=== PATIENT | female | born 1960 | race Caucasian/White ===

== ENCOUNTER 2017-04-20 20:06 | Emergency (ER) | payer OTHER ==
--- NOTE | 2017-04-20 22:09 | ER Document Report ---
ED Medical Screen (RME) - General Chief Complaint: Blood Pressure Problem Stated Complaint: BLOOD PRESSURE PROBLEMS Time Seen by Provider: 04/20/17 22:03 Notes: Patient is a 56-year-old female presents emergency department complaining of hypotension. She denies any changes in her medication but they do not have an updated med list. Was able to look up her medications on our EMR and her son denies any changes in her medications. She does take 40 mg of Lasix, dillon.b She denies acetembutolol, amitiza and lisinopril. admits to dry mouth and urinary frequency, recently seen in 02/2017 for similar symptoms requiring admission for ARF TRAVEL OUTSIDE OF THE [place] IN LAST 30 DAYS: No - Related Data Allergies/Adverse Reactions: aripiprazole [From Abilify] Allergy (Severe, Verified 05/25/15 12:25) Passed out tramadol HCl [From Ultram] Allergy (Intermediate, Verified 05/25/15 12:25) Penicillins Adverse Reaction (Mild, Verified 05/25/15 12:25) Sulfa (Sulfonamide Antibiotics) Adverse Reaction (Mild, Verified 05/25/15 12:25) Nausea sulindac [From Clinoril] Adverse Reaction (Mild, Verified 05/25/15 12:25) Nausea eszopiclone [From Lunesta] Adverse Reaction (Verified 05/25/15 12:25) Past Medical History - Past Medical History Cardiac Medical History: Reports: Hx Coronary Artery Disease, Hx Hypercholesterolemia, Hx Hypertension Denies: Hx Heart Attack, Hx Pulmonary Embolism Pulmonary Medical History: Reports: Hx Asthma, Hx Bronchitis, Hx COPD, Hx Sleep Apnea Denies: Hx Pneumonia, Hx Respiratory Failure, Hx Tuberculosis Neurological Medical History: Denies: Hx Cerebrovascular Accident, Hx Seizures Endocrine Medical History: Reports: Hx Diabetes Mellitus Type 2 - BORDERLINE. Denies: Hx Graves' Disease, Hx Hyperthyroidism, Hx Hypothyroidism Renal/ Medical History: Denies: Hx Ovarian Cysts, Hx Peritoneal Dialysis, Hx Pelvic Inflammatory Disease Malignancy Medical History: Denies: Hx Breast Cancer, Hx Cervical Cancer, Hx Lung Cancer, Hx Ovarian Cancer GI Medical History: Reports: Hx Gastroesophageal Reflux Disease. Denies: Hx Crohn's Disease, Hx Hiatal Hernia, Hx Irritable Bowel, Hx Liver Failure, Hx Ulcer Musculoskeltal Medical History: Reports Hx Arthritis, Reports Hx Fibromyalgia, Denies Hx Multiple Sclerosis, Denies Hx Muscular Dystrophy, Reports Hx Musculoskeletal Deformity, Reports Hx Musculoskeletal Trauma Psychiatric Medical History: Reports: Hx Anxiety, Hx Depression Denies: Hx Bipolar Disorder, Hx Dementia, Hx Post Traumatic Stress Disorder, Hx Schizophrenia Traumatic Medical History: Denies: Hx Fractures Past Surgical History: Reports: Hx Cholecystectomy, Hx Herniorrhaphy - umbilical hernia, Hx Hysterectomy, Hx Orthopedic Surgery - right knee surgery, Hx Tubal Ligation. Denies: Hx Appendectomy, Hx Bowel Surgery, Hx Section, Hx Colostomy, Hx Coronary Artery Bypass Graft, Hx Gastric Bypass Surgery, Hx Mastectomy, Hx Pacemaker, Hx Tonsillectomy - Immunizations Immunizations up to date: Yes Hx Diphtheria, Pertussis, Tetanus Vaccination: Yes - 2010 Physical Exam - Vital signs Vitals: Temp Pulse Resp BP Pulse Ox 97.9 F 100 22 H 95/66 L 91 L 04/20/17 20:31 04/20/17 20:31 04/20/17 20:31 04/20/17 20:31 04/20/17 20:31 Course - Vital Signs Vital signs: Temp Pulse Resp BP Pulse Ox 97.9 F 100 22 H 95/66 L 91 L 04/20/17 20:31 04/20/17 20:31 04/20/17 20:31 04/20/17 20:31 04/20/17 20:31
--- NOTE | 2017-04-20 22:43 | ER Document Report ---
ED Blood Pressure Problem - General Chief Complaint: Blood Pressure Problem Stated Complaint: BLOOD PRESSURE PROBLEMS Time Seen by Provider: 04/20/17 22:03 Notes: The patient is a 56 yo female, PMHx GERD, fibromyalgia, chronic pain, hypertension, COPD, morbid obesity and obstructive sleep apnea, presents with generalized weakness and hypotension at home. She was seen for similar symptoms about 2 months ago and admitted for acute renal failure and hypotension that resolved after IV fluids. She is continuing to take her lisinopril and Lasix 40 mg twice a day. Patient is also having mild shortness of breath, but she says this is chronic for her due to her COPD. She denies chest pain, fevers, increased leg swelling, abdominal pain, focal weakness, numbness, tingling, blurry vision, headache, urinary symptoms or rash. TRAVEL OUTSIDE OF THE [place] IN LAST 30 DAYS: No - Related Data Allergies/Adverse Reactions: aripiprazole [From Abilify] Allergy (Severe, Verified 05/25/15 12:25) Passed out tramadol HCl [From Ultram] Allergy (Intermediate, Verified 05/25/15 12:25) Penicillins Adverse Reaction (Mild, Verified 05/25/15 12:25) Sulfa (Sulfonamide Antibiotics) Adverse Reaction (Mild, Verified 05/25/15 12:25) Nausea sulindac [From Clinoril] Adverse Reaction (Mild, Verified 05/25/15 12:25) Nausea eszopiclone [From Lunesta] Adverse Reaction (Verified 05/25/15 12:25) Past Medical History - General Information source: Patient - Social History Smoking Status: Never Smoker Family History: Hypertension Patient has suicidal ideation: No Patient has homicidal ideation: No - Past Medical History Cardiac Medical History: Reports: Hx Coronary Artery Disease, Hx Hypercholesterolemia, Hx Hypertension Denies: Hx Heart Attack, Hx Pulmonary Embolism Pulmonary Medical History: Reports: Hx Asthma, Hx Bronchitis, Hx COPD, Hx Sleep Apnea Denies: Hx Pneumonia, Hx Respiratory Failure, Hx Tuberculosis Neurological Medical History: Denies: Hx Cerebrovascular Accident, Hx Seizures Endocrine Medical History: Reports: Hx Diabetes Mellitus Type 2 - BORDERLINE. Denies: Hx Graves' Disease, Hx Hyperthyroidism, Hx Hypothyroidism Renal/ Medical History: Denies: Hx Ovarian Cysts, Hx Peritoneal Dialysis, Hx Pelvic Inflammatory Disease Malignancy Medical History: Denies: Hx Breast Cancer, Hx Cervical Cancer, Hx Lung Cancer, Hx Ovarian Cancer GI Medical History: Reports: Hx Gastroesophageal Reflux Disease. Denies: Hx Crohn's Disease, Hx Hiatal Hernia, Hx Irritable Bowel, Hx Liver Failure, Hx Ulcer Musculoskeltal Medical History: Reports Hx Arthritis, Reports Hx Fibromyalgia, Denies Hx Multiple Sclerosis, Denies Hx Muscular Dystrophy, Reports Hx Musculoskeletal Deformity, Reports Hx Musculoskeletal Trauma Psychiatric Medical History: Reports: Hx Anxiety, Hx Depression Denies: Hx Bipolar Disorder, Hx Dementia, Hx Post Traumatic Stress Disorder, Hx Schizophrenia Traumatic Medical History: Denies: Hx Fractures Past Surgical History: Reports: Hx Cholecystectomy, Hx Herniorrhaphy - umbilical hernia, Hx Hysterectomy, Hx Orthopedic Surgery - right knee surgery, Hx Tubal Ligation. Denies: Hx Appendectomy, Hx Bowel Surgery, Hx Section, Hx Colostomy, Hx Coronary Artery Bypass Graft, Hx Gastric Bypass Surgery, Hx Mastectomy, Hx Pacemaker, Hx Tonsillectomy - Immunizations Immunizations up to date: Yes Hx Diphtheria, Pertussis, Tetanus Vaccination: Yes - 2010 Hx Pneumococcal Vaccination: 03/03/16 Review of Systems - Review of Systems Notes: REVIEW OF SYSTEMS: CONSTITUTIONAL: -fevers, -chills EENT: -eye pain, -difficulty swallowing, -nasal congestion CARDIOVASCULAR:-chest pain, -syncope. RESPIRATORY: -cough, +SOB GASTROINTESTINAL: -abdominal pain, -nausea, -vomiting, -diarrhea GENITOURINARY: -dysuria, -hematuria MUSCULOSKELETAL: -back pain, -neck pain SKIN: -rash or skin lesions. HEMATOLOGIC: -easy bruising or bleeding. LYMPHATIC: -swollen, enlarged glands. NEUROLOGICAL: -altered mental status or loss of consciousness, -headache, - neurologic symptoms PSYCHIATRIC: -anxiety, -depression. ALL OTHER SYSTEMS REVIEWED AND NEGATIVE. Physical Exam - Vital signs Vitals: Temp Pulse Resp BP Pulse Ox 97.9 F 100 22 H 95/66 L 91 L 04/20/17 20:31 04/20/17 20:31 04/20/17 20:31 04/20/17 20:31 04/20/17 20:31 - Notes Notes: PHYSICAL EXAMINATION: GENERAL: Well-appearing, well-nourished and in no acute distress. HEAD: Atraumatic, normocephalic. EYES: Pupils equal round and reactive to light, extraocular movements intact, sclera anicteric, conjunctiva are normal. ENT: nares patent, oropharynx clear without exudates. Moist mucous membranes. NECK: Normal range of motion, supple without lymphadenopathy LUNGS: Breath sounds clear to auscultation bilaterally and equal. No wheezes rales or rhonchi. HEART: Regular rate and rhythm without murmurs ABDOMEN: Soft, nontender, normoactive bowel sounds. No guarding, no rebound. No masses appreciated. EXTREMITIES: Normal range of motion, no pitting or edema. No cyanosis. NEUROLOGICAL: Cranial nerves grossly intact. Normal speech, normal gait. Normal sensory and motor exams. PSYCH: Normal mood, normal affect. SKIN: Warm, Dry, normal turgor, no rashes or lesions noted. Course - Re-evaluation Re-evalutation: Pt appears well. Her blood pressure improved to 119/87 after IV fluids and she is not orthostatic. Blood work and urine are unremarkable. D-dimer sent because of tachycardia, hypotension and slight hypoxia and this was elevated, but CTA did not show any evidence of PE. No signs of infection to suggest sepsis. Told her to hold her Lisinopril until she can see her PMD this week. Will D/C pt home with strict return precautions. Her and understand. - Vital Signs Vital signs: Temp Pulse Resp BP Pulse Ox 97.9 F 100 22 H 106/67 96 04/20/17 20:31 04/20/17 20:31 04/20/17 20:31 04/21/17 01:31 04/21/17 01:31 - Laboratory Result Diagrams: 04/20/17 22:26 04/20/17 22:26 Laboratory results interpreted by me: 04/20/17 04/20/17 04/20/17 22:26 22:26 22:26 D-Dimer 0.62 H Chloride 96 L Carbon Dioxide 35 H Est GFR (Non-Af Amer) 52 L Ur Leukocyte Esterase SMALL H - Diagnostic Test Radiology reviewed: Image reviewed, Reports reviewed Radiology results interpreted by me: CXR: NAD CTA Chest: No PE. - EKG Interpretation by Me EKG shows normal: Sinus rhythm, [place], Intervals, QRS Complexes, ST-T Waves Rate: Normal Discharge - Discharge Clinical Impression: Hypotension Qualifiers: Hypotension type: unspecified hypotension type Qualified Code(s): I95.9 - Hypotension, unspecified Condition: Stable Disposition: HOME, SELF-CARE Additional Instructions: Do not take your lisinopril because this may be making your blood pressure too low. Speak to your primary care physician when you see her this week to have your blood pressure rechecked. Return immediately to the ER if you notice any worsening symptoms or any other concerns. Referrals: DOMENICA ARTEAGA MD [Primary Care Provider] - Follow up as needed
[2017-04-20] MEDS: NORMAL SALINE 1000 ML 1,000 ML IV PRN ×2 (22:47→22:48)
[2017-04-20 22:52] LABS: ABSOLUTE BASOPHILS # (AUTO) 0.1 10^3/uL (0.0-0.2); ABSOLUTE EOSINOPHILS # (AUTO) 0.3 10^3/uL (0.0-0.6); ABSOLUTE LYMPHOCYTES (AUTO) 2.7 10^3/uL (0.5-4.7); ABSOLUTE MONOCYTES (AUTO) 0.7 10^3/uL (0.1-1.4); ABSOLUTE NEUT (AUTO) 2.8 10^3/uL (1.7-8.2); BASOPHILS % (AUTO) 0.9 % (0-2); EOSINOPHILS % (AUTO) 5.2 % (0-6); HEMATOCRIT 39.8 % (36.0-47.0); HEMOGLOBIN 13.9 g/dL (12.0-15.5); HGB HCT DIFFERENCE 1.9; LYMPHOCYTES % (AUTO) 40.1 % (13-45); MEAN CORPUSCULAR HEMOGLOBIN 30.9 pg (27.0-33.4); MEAN CORPUSCULAR HGB CONC 34.8 g/dL (32.0-36.0); MEAN CORPUSCULAR VOLUME 89 fl (80-97); MONOCYTES % (AUTO) 11.1 % (3-13); RED BLOOD COUNT 4.48 10^6/uL (3.72-5.28); RED CELL DISTRIBUTION WIDTH 13.3 % (11.5-14.0); SEGMENTED NEUTROPHILS % (AUTO) 42.7 % (42-78); WHITE BLOOD COUNT 6.6 10^3/uL (4.0-10.5)
[2017-04-20 22:57] LABS: APPEARANCE,URINE CLEAR; BILIRUBIN,URINE NEGATIVE (NEGATIVE); GLUCOSE, URINE NEGATIVE (NEGATIVE); KETONES,URINE NEGATIVE (NEGATIVE); LEUKOCYTE ESTERASE,URINE SMALL (NEGATIVE); NITRITE,URINE NEGATIVE (NEGATIVE); PROTEIN,URINE NEGATIVE (NEGATIVE); URINE SPECIFIC GRAVITY 1.015; UROBILINOGEN,URINE NEGATIVE mg/dL (<2.0)
[2017-04-20 23:07] LABS: ALANINE AMINOTRANSFERASE 36 U/L (9-52); ALBUMIN 4.1 g/dL (3.5-5.0); ALKALINE PHOSPHATASE 94 U/L (38-126); ANION GAP 11 (5-19); ASPARTATE AMINO TRANSFERASE 25 U/L (14-36); BILIRUBIN,DIRECT 0.4 mg/dL (0.0-0.4); BILIRUBIN,TOTAL 0.4 mg/dL (0.2-1.3); BLOOD UREA NITROGEN 19 mg/dL (7-20); CALCIUM 9.9 mg/dL (8.4-10.2); CARBON DIOXIDE 35 mmol/L (22-30); CHLORIDE 96 mmol/L (98-107); CREATININE RESULT 1.08 mg/dL (0.52-1.25); GLUCOSE 100 mg/dL (75-110); POTASSIUM 4.2 mmol/L (3.6-5.0); SODIUM 142.1 mmol/L (137-145); TOTAL PROTEIN 7.6 g/dL (6.3-8.2)
--- NOTE | 2017-04-20 23:20 | RADIOLOGY REPORT (SQ) ---
EXAM DESCRIPTION: CHEST SINGLE VIEW COMPLETED DATE/TIME: 04/20/2017 11:03 pm REASON FOR STUDY: SOB COMPARISON: 03/03/2017 EXAM PARAMETERS: NUMBER OF VIEWS: One view. TECHNIQUE: Single frontal radiographic view of the chest acquired. RADIATION DOSE: NA LIMITATIONS: None. FINDINGS: LUNGS AND PLEURA: No acute opacities, masses or pneumothorax. No pleural effusion. MEDIASTINUM AND HILAR STRUCTURES: Stable. HEART AND VASCULAR STRUCTURES: Stable. BONES: No acute findings. HARDWARE: Left cervical fusion hardware. OTHER: No other significant finding. IMPRESSION: NO ACUTE RADIOGRAPHIC FINDING IN THE CHEST. TECHNICAL DOCUMENTATION: JOB ID: [id number]
[2017-04-21] MEDS ORDERED: NORMAL SALINE 1000 ML 1,000 ML IV ONE (01:32)
--- NOTE | 2017-04-21 01:48 | RADIOLOGY REPORT (SQ) ---
EXAM: CT ANGIOGRAM OF THE CHEST USING INTRAVENOUS ADMINISTRATION OF NONIONIC IODINATED CONTRAST MATERIAL. CLINICAL INDICATION: Cardiac. Shortness of breath. Hypotension. Elevated d-dimer. COMPARISON: None. TECHNIQUE: Using helical technique, thin section axial images were performed through the chest after the uncomplicated intravenous administration of 100 mL [id number]-[id number]. Axially acquired data was then transferred to a dedicated CT workstation to facilitate parasagittal, coronal and volumetric 3-D reconstructions. [employer]orem[employer] Supervisor volumetric 3-D reconstructions for this examination were permanently stored on the PACS system. FINDINGS: Pulmonary arteries are normal. No pulmonary embolism. Mild atherosclerotic calcification of thoracic aorta and at the origin of the great vessels without aneurysm or dissection. Diameter of the ascending thoracic aorta equals 3 cm. Cardiac size and contour appears normal. No pericardial effusion. No suspicious hilar, mediastinal or axillary lymphadenopathy. Bilateral groundglass interstitial haze suspicious for views interstitial disease. IMPRESSION: 1. No pulmonary. 2. Diffuse groundglass opacities in both lungs suspicious for interstitial disease. 3. Mild atherosclerotic calcification of the thoracic aorta without aneurysm or dissection.
[2017-04-21 02:45] VITALS: BP 123/75
== END 2017-04-21 02:50 | disposition home or self-care (01) ==
LOC: ER 20:06
DX: I95.9 Hypotension, unspecified (principal); R53.1 Weakness; I10 Essential (primary) hypertension; J44.9 Chronic obstructive pulmonary disease, unspecified; R09.02 Hypoxemia; R06.02 Shortness of breath; I25.10 Atherosclerotic heart disease of native coronary artery without angina pectoris; R00.0 Tachycardia, unspecified; Z79.899 Other long term (current) drug therapy; Z88.8 Allergy status to other drugs, medicaments and biological substances; Z88.5 Allergy status to narcotic agent
CPT/HCPCS: 99285; 96360; 96361; 36415; 85025; 80053; 81001; 85379; 71010; 71275; J7030 ×2